=== PATIENT | male | born 1970 | race Caucasian/White ===

== ENCOUNTER → 2020-08-22 12:37 | Outpatient (CLI) | payer OTHER, SELFPAY ==
--- NOTE | 2020-08-22 12:39 | DI.US.S_ITS ---
PROCEDURE: US SCROTUM INDICATIONS: LEFT SCROTAL MASS TECHNIQUE: Real-time scanning was performed of the scrotum and testicles, with image documentation. Color and pulse Doppler interrogation was performed of both testicles. COMPARISON: None. FINDINGS: Right: Testicle is normal in size at 4.5 x 3.4 x 2.2 cm, and homogenous in echotexture. Epididymis is normal in overall size and morphology. Minimal hydrocele. No varicoceles. Overlying scrotal skin is normal in thickness. Left: Testicle is normal in size at 4.6 x 2.9 x 2.4 cm, and homogeneous in echotexture. Large epididymal head cyst measuring 2.8 x 2.6 x 1.9 cm. Minimal hydrocele. No varicoceles. Overlying scrotal skin is normal in thickness. Doppler: Color and pulse Doppler demonstrate normal and symmetric arterial flow in both testicles. IMPRESSION: 1. Large left epididymal head cyst or spermatocele measuring at 2.8 cm. 2. No testicular mass. Blood flow in the testes is symmetric. 3. Minimal bilateral hydroceles. Dictated by: Valdez Maynard M.D. on 08/22/2020 at 12:46 Approved by: Valdez Maynard M.D. on 08/22/2020 at 12:51
== END ==
PROVIDERS: Referring Provider Specialist; Visit Provider Specialist
DX: N50.89 Other specified disorders of the male genital organs (principal)
CPT/HCPCS: 76870